=== PATIENT | male | born 1965 | race African-American/Black ===

== ENCOUNTER 2021-12-26 12:59 | Inpatient (IN) | payer OTHER ==
[2021-12-26 15:38] VITALS: BMI 21.5
[2021-12-26] MEDS ORDERED: MAGNESIUM HYDROX 2400MG/30ML ORAL SUSPENSION 30 ML CUP PO PRN (16:27)
[2021-12-26] MEDS ORDERED: MAGNESIUM CITRATE 300 ML BOTTLE PO PRN (16:27)
[2021-12-26] MEDS ORDERED: MAG HYDROX/AL HYDROX/SIMETH 30 ML UNIT-DOSE CUP PO PRN (16:27)
[2021-12-26] MEDS ORDERED: P-EPHED 60MG/TRIPROLIDI 2.5MG TABLET PO PRN (16:27)
[2021-12-26] MEDS ORDERED: ACETAMINOPHEN 325 MG TABLET (FP) PO PRN (16:27)
[2021-12-26] MEDS ORDERED: guaiFENesin 200 MG/10 ML 10 ML UNIT-DOSE CUPS PO PRN (16:27)
[2021-12-26] MEDS ORDERED: IBUPROFEN 400 MG TABLET (FP) PO PRN (16:27)
[2021-12-26] MEDS ORDERED: LOPERAMIDE HCL 2 MG CAPSULE PO PRN (16:27)
[2021-12-26] MEDS ORDERED: TUBERCULIN PPD 5 TU/0.1ML VIAL ID ONE ×2 (21:39→22:10)
[2021-12-26] MEDS: THIAMINE HCL 100 MG TABLET (FP) PO SCH (21:42)
[2021-12-26] MEDS: MELATONIN 5 MG TABLETS PO SCH (21:43)
[2021-12-26] MEDS: PRENATAL VITAMINS W/ FOLIC ACID TABLET (FP) PO SCH (21:43)
[2021-12-26] MEDS: hydrOXYzine PAMOATE 25 MG CAPSULE (FP) PO SCH ×2 (21:43)
[2021-12-26] MEDS ORDERED: cloNIDine HCL 0.1 MG TABLET PO ONE (23:04)
[2021-12-27] MEDS: hydrOXYzine PAMOATE 25 MG CAPSULE (FP) PO SCH ×5 (06:39→23:30)
[2021-12-27] MEDS: PRENATAL VITAMINS W/ FOLIC ACID TABLET (FP) PO SCH (10:04)
[2021-12-27 11:18] LABS: HEMATOCRIT 41.4 % (35.4-49); HEMOGLOBIN 13.3 GM/dL (11.7-16.9); MCH 29.6 pg (25.7-33.7); MCHC 32.2 g/dl (32.0-35.9); MEAN CELL VOLUME 91.9 fl (80-96); MEAN PLT VOLUME 8.3 fl (7.5-11.1); PLATELET COUNT 199 10^3/uL (134-434); RDW 15.2 % (11.9-15.9); WHITE BLOOD COUNT 4.6 K/mm3 (4.0-10.0)
[2021-12-27 11:47] LABS: ALBUMIN 3.4 g/dl (3.4-5.0); BLOOD UREA NITROGEN 11.6 mg/dL (7-18); CALCIUM 8.5 mg/dL (8.5-10.1)
[2021-12-27 11:52] LABS: BILIRUBIN,TOTAL 0.8 mg/dL (0.2-1); TOT PROT 6.2 g/dl (6.4-8.2)
[2021-12-27 12:47] LABS: SYPHILIS W/ RPR CONF NON-REACTIVE (NONREACTIVE)
[2021-12-27 18:45] LABS: URINE APPEARANCE CLEAR; URINE BILIRUBIN NEGATIVE (NEGATIVE); URINE COLOR YELLOW; URINE GLUCOSE (UA) NEGATIVE (NEGATIVE); URINE KETONE NEGATIVE (NEGATIVE); URINE LEUK ESTERASE NEGATIVE (NEGATIVE); URINE NITRITE NEGATIVE (NEGATIVE); URINE PROTEIN NEGATIVE (NEGATIVE); URINE UROBILINOGEN 0.2 mg/dL (0.2-1.0)
[2021-12-27] MEDS: THIAMINE HCL 100 MG TABLET (FP) PO SCH (21:12)
[2021-12-27] MEDS: MELATONIN 5 MG TABLETS PO SCH (21:12)
[2021-12-28] MEDS: hydrOXYzine PAMOATE 25 MG CAPSULE (FP) PO SCH (06:40)
[2021-12-28] MEDS: PRENATAL VITAMINS W/ FOLIC ACID TABLET (FP) PO SCH (09:55)
[2021-12-28] MEDS: MELATONIN 5 MG TABLETS PO SCH (21:29)
[2021-12-28] MEDS: THIAMINE HCL 100 MG TABLET (FP) PO SCH (21:29)
[2021-12-29] MEDS: PRENATAL VITAMINS W/ FOLIC ACID TABLET (FP) PO SCH (10:10)
[2021-12-29] MEDS: hydrOXYzine PAMOATE 25 MG CAPSULE (FP) PO PRN ×2 (10:10→21:20)
[2021-12-29] MEDS: THIAMINE HCL 100 MG TABLET (FP) PO SCH (21:19)
[2021-12-29] MEDS: MELATONIN 5 MG TABLETS PO SCH (21:19)
[2021-12-30] MEDS: PRENATAL VITAMINS W/ FOLIC ACID TABLET (FP) PO SCH (10:09)
[2021-12-30] MEDS: hydrOXYzine PAMOATE 25 MG CAPSULE (FP) PO PRN ×2 (10:10→22:02)
[2021-12-30] MEDS ORDERED: NICOTINE 10 MG CARTRIDGE (INHALER) IH PRN (19:09)
[2021-12-30] MEDS ORDERED: QUEtiapine FUMARATE 200 MG TABLET PO SCH (22:00)
[2021-12-30] MEDS: QUEtiapine FUMARATE 50 MG TABLET PO SCH (22:01)
[2021-12-30] MEDS: THIAMINE HCL 100 MG TABLET (FP) PO SCH (22:01)
[2021-12-30] MEDS: MELATONIN 5 MG TABLETS PO SCH (22:02)
[2021-12-31] MEDS ORDERED: SERTRALINE HCL 50 MG TABLET (FP) PO SCH (10:00)
[2021-12-31] MEDS: SERTRALINE HCL 50 MG TABLET (FP) PO SCH (10:07)
[2021-12-31] MEDS: PRENATAL VITAMINS W/ FOLIC ACID TABLET (FP) PO SCH (10:07)
[2021-12-31] MEDS: QUEtiapine FUMARATE 50 MG TABLET PO SCH (21:25)
[2021-12-31] MEDS: hydrOXYzine PAMOATE 25 MG CAPSULE (FP) PO PRN (21:25)
[2021-12-31] MEDS: MELATONIN 5 MG TABLETS PO SCH (21:25)
[2021-12-31] MEDS: THIAMINE HCL 100 MG TABLET (FP) PO SCH (21:25)
[2022-01-01] MEDS: hydrOXYzine PAMOATE 25 MG CAPSULE (FP) PO PRN ×2 (09:55→21:15)
[2022-01-01] MEDS: PRENATAL VITAMINS W/ FOLIC ACID TABLET (FP) PO SCH (09:55)
[2022-01-01] MEDS: SERTRALINE HCL 50 MG TABLET (FP) PO SCH (09:55)
[2022-01-01] MEDS: MELATONIN 5 MG TABLETS PO SCH (21:15)
[2022-01-01] MEDS: THIAMINE HCL 100 MG TABLET (FP) PO SCH (21:15)
[2022-01-01] MEDS: QUEtiapine FUMARATE 50 MG TABLET PO SCH (21:15)
[2022-01-02] MEDS: SERTRALINE HCL 50 MG TABLET (FP) PO SCH (09:46)
[2022-01-02] MEDS: PRENATAL VITAMINS W/ FOLIC ACID TABLET (FP) PO SCH (09:46)
[2022-01-02] MEDS: hydrOXYzine PAMOATE 25 MG CAPSULE (FP) PO PRN ×2 (09:47→21:22)
[2022-01-02] MEDS: THIAMINE HCL 100 MG TABLET (FP) PO SCH (21:22)
[2022-01-02] MEDS: QUEtiapine FUMARATE 50 MG TABLET PO SCH (21:22)
[2022-01-02] MEDS: MELATONIN 5 MG TABLETS PO SCH (21:22)
[2022-01-03] MEDS: SERTRALINE HCL 50 MG TABLET (FP) PO SCH (10:08)
[2022-01-03] MEDS: PRENATAL VITAMINS W/ FOLIC ACID TABLET (FP) PO SCH (10:08)
[2022-01-03] MEDS: hydrOXYzine PAMOATE 25 MG CAPSULE (FP) PO PRN ×2 (10:09→21:40)
[2022-01-03] MEDS: QUEtiapine FUMARATE 50 MG TABLET PO SCH (21:40)
[2022-01-03] MEDS: MELATONIN 5 MG TABLETS PO SCH (21:41)
[2022-01-03] MEDS: THIAMINE HCL 100 MG TABLET (FP) PO SCH (21:41)
[2022-01-04] MEDS: SERTRALINE HCL 50 MG TABLET (FP) PO SCH (10:05)
[2022-01-04] MEDS: hydrOXYzine PAMOATE 25 MG CAPSULE (FP) PO PRN ×2 (10:05→21:14)
[2022-01-04] MEDS: PRENATAL VITAMINS W/ FOLIC ACID TABLET (FP) PO SCH (10:05)
[2022-01-04] MEDS: THIAMINE HCL 100 MG TABLET (FP) PO SCH (21:14)
[2022-01-04] MEDS: MELATONIN 5 MG TABLETS PO SCH (21:14)
[2022-01-04] MEDS: QUEtiapine FUMARATE 50 MG TABLET PO SCH (21:14)
[2022-01-05] MEDS: SERTRALINE HCL 50 MG TABLET (FP) PO SCH (09:46)
[2022-01-05] MEDS: PRENATAL VITAMINS W/ FOLIC ACID TABLET (FP) PO SCH (09:46)
[2022-01-05] MEDS: hydrOXYzine PAMOATE 25 MG CAPSULE (FP) PO PRN ×2 (09:47→21:26)
[2022-01-05] MEDS: QUEtiapine FUMARATE 50 MG TABLET PO SCH (21:26)
[2022-01-05] MEDS: THIAMINE HCL 100 MG TABLET (FP) PO SCH (21:26)
[2022-01-05] MEDS: MELATONIN 5 MG TABLETS PO SCH (21:26)
[2022-01-06] MEDS: SERTRALINE HCL 50 MG TABLET (FP) PO SCH (10:04)
[2022-01-06] MEDS: PRENATAL VITAMINS W/ FOLIC ACID TABLET (FP) PO SCH (10:04)
[2022-01-06] MEDS: hydrOXYzine PAMOATE 25 MG CAPSULE (FP) PO PRN (10:05)
[2022-01-06] MEDS: MELATONIN 5 MG TABLETS PO SCH (21:07)
[2022-01-06] MEDS: THIAMINE HCL 100 MG TABLET (FP) PO SCH (21:07)
[2022-01-06] MEDS: QUEtiapine FUMARATE 50 MG TABLET PO SCH (21:07)
[2022-01-07] MEDS: PRENATAL VITAMINS W/ FOLIC ACID TABLET (FP) PO SCH (10:08)
[2022-01-07] MEDS: SERTRALINE HCL 50 MG TABLET (FP) PO SCH (10:08)
[2022-01-07] MEDS: hydrOXYzine PAMOATE 25 MG CAPSULE (FP) PO PRN ×2 (10:09→21:29)
[2022-01-07] MEDS: QUEtiapine FUMARATE 50 MG TABLET PO SCH (21:29)
[2022-01-07] MEDS: MELATONIN 5 MG TABLETS PO SCH (21:29)
[2022-01-07] MEDS: THIAMINE HCL 100 MG TABLET (FP) PO SCH (21:29)
[2022-01-08] MEDS: PRENATAL VITAMINS W/ FOLIC ACID TABLET (FP) PO SCH (10:17)
[2022-01-08] MEDS: SERTRALINE HCL 50 MG TABLET (FP) PO SCH (10:17)
[2022-01-08] MEDS: hydrOXYzine PAMOATE 25 MG CAPSULE (FP) PO PRN ×2 (10:18→21:29)
[2022-01-08] MEDS: THIAMINE HCL 100 MG TABLET (FP) PO SCH (21:29)
[2022-01-08] MEDS: QUEtiapine FUMARATE 50 MG TABLET PO SCH (21:29)
[2022-01-08] MEDS: MELATONIN 5 MG TABLETS PO SCH (21:30)
[2022-01-09] MEDS: SERTRALINE HCL 50 MG TABLET (FP) PO SCH (10:18)
[2022-01-09] MEDS: PRENATAL VITAMINS W/ FOLIC ACID TABLET (FP) PO SCH (10:18)
[2022-01-09] MEDS: hydrOXYzine PAMOATE 25 MG CAPSULE (FP) PO PRN (10:19)
[2022-01-09] MEDS: THIAMINE HCL 100 MG TABLET (FP) PO SCH (21:19)
[2022-01-09] MEDS: MELATONIN 5 MG TABLETS PO SCH (21:19)
[2022-01-09] MEDS: QUEtiapine FUMARATE 50 MG TABLET PO SCH (21:19)
[2022-01-10] MEDS: PRENATAL VITAMINS W/ FOLIC ACID TABLET (FP) PO SCH (10:05)
[2022-01-10] MEDS: SERTRALINE HCL 50 MG TABLET (FP) PO SCH (10:05)
[2022-01-10] MEDS: hydrOXYzine PAMOATE 25 MG CAPSULE (FP) PO PRN ×2 (10:06→21:19)
[2022-01-10] MEDS: QUEtiapine FUMARATE 50 MG TABLET PO SCH (21:19)
[2022-01-10] MEDS: THIAMINE HCL 100 MG TABLET (FP) PO SCH (21:19)
[2022-01-10] MEDS: MELATONIN 5 MG TABLETS PO SCH (21:19)
[2022-01-11] MEDS: SERTRALINE HCL 50 MG TABLET (FP) PO SCH (10:26)
[2022-01-11] MEDS: PRENATAL VITAMINS W/ FOLIC ACID TABLET (FP) PO SCH (10:27)
[2022-01-11] MEDS: hydrOXYzine PAMOATE 25 MG CAPSULE (FP) PO PRN (10:27)
[2022-01-11] MEDS: QUEtiapine FUMARATE 50 MG TABLET PO SCH (21:22)
[2022-01-11] MEDS: THIAMINE HCL 100 MG TABLET (FP) PO SCH (21:22)
[2022-01-11] MEDS: MELATONIN 5 MG TABLETS PO SCH (21:23)
[2022-01-12] MEDS: hydrOXYzine PAMOATE 25 MG CAPSULE (FP) PO PRN ×2 (09:47→21:20)
[2022-01-12] MEDS: SERTRALINE HCL 50 MG TABLET (FP) PO SCH (09:47)
[2022-01-12] MEDS: PRENATAL VITAMINS W/ FOLIC ACID TABLET (FP) PO SCH (09:47)
[2022-01-12] MEDS: THIAMINE HCL 100 MG TABLET (FP) PO SCH (21:20)
[2022-01-12] MEDS: QUEtiapine FUMARATE 50 MG TABLET PO SCH (21:20)
[2022-01-12] MEDS: MELATONIN 5 MG TABLETS PO SCH (21:20)
[2022-01-13] MEDS: PRENATAL VITAMINS W/ FOLIC ACID TABLET (FP) PO SCH (10:15)
[2022-01-13] MEDS: hydrOXYzine PAMOATE 25 MG CAPSULE (FP) PO PRN ×2 (10:15→21:11)
[2022-01-13] MEDS: SERTRALINE HCL 50 MG TABLET (FP) PO SCH (10:15)
[2022-01-13] MEDS: QUEtiapine FUMARATE 50 MG TABLET PO SCH (21:11)
[2022-01-13] MEDS: MELATONIN 5 MG TABLETS PO SCH (21:11)
[2022-01-13] MEDS: THIAMINE HCL 100 MG TABLET (FP) PO SCH (21:11)
[2022-01-14] MEDS: PRENATAL VITAMINS W/ FOLIC ACID TABLET (FP) PO SCH (09:51)
[2022-01-14] MEDS: hydrOXYzine PAMOATE 25 MG CAPSULE (FP) PO PRN (09:51)
[2022-01-14] MEDS: SERTRALINE HCL 50 MG TABLET (FP) PO SCH (09:51)
[2022-01-14] MEDS: MELATONIN 5 MG TABLETS PO SCH (21:16)
[2022-01-14] MEDS: THIAMINE HCL 100 MG TABLET (FP) PO SCH (21:16)
[2022-01-14] MEDS: QUEtiapine FUMARATE 50 MG TABLET PO SCH (21:17)
[2022-01-15] MEDS: SERTRALINE HCL 50 MG TABLET (FP) PO SCH (09:53)
[2022-01-15] MEDS: hydrOXYzine PAMOATE 25 MG CAPSULE (FP) PO PRN (09:53)
[2022-01-15] MEDS: PRENATAL VITAMINS W/ FOLIC ACID TABLET (FP) PO SCH (09:53)
[2022-01-15] MEDS: MELATONIN 5 MG TABLETS PO SCH (21:27)
[2022-01-15] MEDS: QUEtiapine FUMARATE 50 MG TABLET PO SCH (21:28)
[2022-01-15] MEDS: THIAMINE HCL 100 MG TABLET (FP) PO SCH (21:28)
[2022-01-16] MEDS: SERTRALINE HCL 50 MG TABLET (FP) PO SCH (10:15)
[2022-01-16] MEDS: PRENATAL VITAMINS W/ FOLIC ACID TABLET (FP) PO SCH (10:15)
[2022-01-16] MEDS: hydrOXYzine PAMOATE 25 MG CAPSULE (FP) PO PRN (10:15)
[2022-01-16] MEDS: THIAMINE HCL 100 MG TABLET (FP) PO SCH (21:18)
[2022-01-16] MEDS: QUEtiapine FUMARATE 50 MG TABLET PO SCH (21:18)
[2022-01-16] MEDS: MELATONIN 5 MG TABLETS PO SCH (21:18)
[2022-01-17] MEDS: PRENATAL VITAMINS W/ FOLIC ACID TABLET (FP) PO SCH (09:52)
[2022-01-17] MEDS: SERTRALINE HCL 50 MG TABLET (FP) PO SCH (09:52)
[2022-01-17] MEDS: hydrOXYzine PAMOATE 25 MG CAPSULE (FP) PO PRN ×2 (09:52→21:20)
[2022-01-17] MEDS: MELATONIN 5 MG TABLETS PO SCH (21:19)
[2022-01-17] MEDS: QUEtiapine FUMARATE 50 MG TABLET PO SCH (21:19)
[2022-01-17] MEDS: THIAMINE HCL 100 MG TABLET (FP) PO SCH (21:20)
[2022-01-18] MEDS: SERTRALINE HCL 50 MG TABLET (FP) PO SCH (10:21)
[2022-01-18] MEDS: hydrOXYzine PAMOATE 25 MG CAPSULE (FP) PO PRN (10:21)
[2022-01-18] MEDS: PRENATAL VITAMINS W/ FOLIC ACID TABLET (FP) PO SCH (10:21)
[2022-01-18] MEDS: MELATONIN 5 MG TABLETS PO SCH (21:33)
[2022-01-18] MEDS: QUEtiapine FUMARATE 50 MG TABLET PO SCH (21:33)
[2022-01-18] MEDS: THIAMINE HCL 100 MG TABLET (FP) PO SCH (21:33)
[2022-01-19] MEDS: hydrOXYzine PAMOATE 25 MG CAPSULE (FP) PO PRN (09:54)
[2022-01-19] MEDS: PRENATAL VITAMINS W/ FOLIC ACID TABLET (FP) PO SCH (09:54)
[2022-01-19] MEDS: SERTRALINE HCL 50 MG TABLET (FP) PO SCH (09:54)
[2022-01-19] MEDS: QUEtiapine FUMARATE 50 MG TABLET PO SCH (21:24)
[2022-01-19] MEDS: MELATONIN 5 MG TABLETS PO SCH (21:24)
[2022-01-19] MEDS: THIAMINE HCL 100 MG TABLET (FP) PO SCH (21:24)
[2022-01-20] MEDS: SERTRALINE HCL 50 MG TABLET (FP) PO SCH (10:09)
[2022-01-20] MEDS: PRENATAL VITAMINS W/ FOLIC ACID TABLET (FP) PO SCH (10:09)
[2022-01-20] MEDS: hydrOXYzine PAMOATE 25 MG CAPSULE (FP) PO PRN ×2 (10:10→21:15)
[2022-01-20] MEDS: THIAMINE HCL 100 MG TABLET (FP) PO SCH (21:14)
[2022-01-20] MEDS: MELATONIN 5 MG TABLETS PO SCH (21:15)
[2022-01-20] MEDS: QUEtiapine FUMARATE 50 MG TABLET PO SCH (21:15)
[2022-01-21] MEDS: SERTRALINE HCL 50 MG TABLET (FP) PO SCH (09:58)
[2022-01-21] MEDS: hydrOXYzine PAMOATE 25 MG CAPSULE (FP) PO PRN ×2 (09:59→21:39)
[2022-01-21] MEDS: PRENATAL VITAMINS W/ FOLIC ACID TABLET (FP) PO SCH (09:59)
[2022-01-21] MEDS: QUEtiapine FUMARATE 50 MG TABLET PO SCH (21:39)
[2022-01-21] MEDS: THIAMINE HCL 100 MG TABLET (FP) PO SCH (21:39)
[2022-01-21] MEDS: MELATONIN 5 MG TABLETS PO SCH (21:39)
[2022-01-22] MEDS: SERTRALINE HCL 50 MG TABLET (FP) PO SCH (09:40)
[2022-01-22] MEDS: hydrOXYzine PAMOATE 25 MG CAPSULE (FP) PO PRN ×2 (09:40→21:40)
[2022-01-22] MEDS: PRENATAL VITAMINS W/ FOLIC ACID TABLET (FP) PO SCH (09:40)
[2022-01-22 21:03] VITALS: RESP 16
[2022-01-22] MEDS: THIAMINE HCL 100 MG TABLET (FP) PO SCH (21:40)
[2022-01-22] MEDS: QUEtiapine FUMARATE 50 MG TABLET PO SCH (21:40)
[2022-01-22] MEDS: MELATONIN 5 MG TABLETS PO SCH (21:40)
[2022-01-23 06:53] VITALS: TEMP 97.3
[2022-01-23 09:04] VITALS: BP 117/82; PULSE 78
[2022-01-23] MEDS: SERTRALINE HCL 50 MG TABLET (FP) PO SCH (09:09)
[2022-01-23] MEDS: PRENATAL VITAMINS W/ FOLIC ACID TABLET (FP) PO SCH (09:09)
== END 2022-01-23 09:55 | disposition home or self-care (01) | DRG 772 ==
LOC: YASAS 12:59 → Y3E 20:24
PROVIDERS: ADMIT Allergy & Immunology; ATTEND Psychiatry & Neurology Pain Medicine
PROC: HZ42ZZZ Group Counseling for Substance Abuse Treatment, Cognitive-Behavioral (ICD-10-PCS; principal; 2021-12-26)
DX: F10.20 Alcohol dependence, uncomplicated (principal); F14.20 Cocaine dependence, uncomplicated; F12.20 Cannabis dependence, uncomplicated; F17.210 Nicotine dependence, cigarettes, uncomplicated; F31.9 Bipolar disorder, unspecified; G47.00 Insomnia, unspecified; I10 Essential (primary) hypertension
CPT/HCPCS: 36415; 80053; 81003; 82962; 85027; 86780; 86803; C9803-CS; U0003; U0005